=== PATIENT | female | born 1955 | race Caucasian/White ===

== ENCOUNTER 2016-08-23 18:38 | Emergency (ER) | payer BC ==
[~2016-08-23] VITALS: Ht 165.1 cm; Wt 93.8 kg
[~2016-08-23 18:38] MED LIST: METO25 PO; RIVA20 PO; SERT-129 PO; [UNRECOGNIZED DRUG - CODE] PO
[2016-08-23 18:43] VITALS: BP 146/85; PULSE 83; RESP 15; TEMP 97.9; O2SAT 97
--- NOTE | 2016-08-23 19:10 | PD ---
HPI Chief Complaint: Pain: Acute or Chronic Time Seen by Provider: 19:07 Travel History International Travel<30 days: No Contact w/Intl Traveler<30days: No Traveled to known affect area: No History of Present Illness HPI This 61-year-old female had a fairly sudden onset of pain behind her right knee shortly before arrival. She has a history of deep vein thrombosis in her left leg. She has factor V Leiden. She is on Xarelto now. She has some changes due to chronic venous insufficiency in the left leg area of the right leg has not been affected. She did have a history of pulmonary emboli area. The patient was quite severe initially. It was worse when she tried to stand on it PFSH Past Medical History Arthritis: No Asthma: No Atrial Fibrillation: Yes Autoimmune Disease: No Anxiety: Yes (Occasionally) Depression: Yes (Mild depression) Cancer: Yes (skin cancer (Basal cell)) Cardiovascular Problems: Yes (HX OF DVTS AND PE) High Cholesterol: Yes Chemotherapy: No Chest Pain: No Congestive Heart Failure: No COPD: No Cerebrovascular Accident: No Diabetes: No Diminished Hearing: No Endocrine: No Gastrointestinal Disorders: Yes GERD: No Genitourinary: No Hiatal Hernia: No Immune Disorder: No Musculoskeletal: No Neurologic: No Reproductive: No Respiratory: Yes Migraines: Yes Radiation Therapy: No Renal Failure: No Seizures: No Sickle Cell Disease: No Sleep Apnea: No Thyroid Disease: No Ulcer: No Tubal Ligation: Yes Past Surgical History Abdominal Surgery: No AICD: No Arteriovenous Shunt: No Cardiac Surgery: No Ear Surgery: No Endocrine Surgery: No Eye Surgery: No Genitourinary Surgery: No Gynecologic Surgery: No Insulin Pump: No Joint Replacement: No Oral Surgery: No Pacemaker: No Thoracic Surgery: No Tonsillectomy: Yes Other Surgery: Yes (lesion to face removed due to skin cancer) Social History Alcohol Use: No Tobacco Use: No Substance Use: No Allergies-Medications (Allergen,Severity, Reaction): Coded Allergies: Penicillin (Verified Allergy, Intermediate, Hives, 08/23/16) Reported Meds & Prescriptions Reported Meds & Active Scripts Active Reported Sertraline (Sertraline HCl) 50 Mg Tab 50 Mg PO DAILY Metoprolol Tartrate 50 Mg Tab 50 Mg PO BID Xarelto (Rivaroxaban) 10 Mg Tab 10 Mg PO DAILY Review of Systems General / Constitutional: No: Fever, Chills Eyes: No: Diploplia, Blurred Vision HENT: No: Headaches, Vertigo Cardiovascular: No: Chest Pain or Discomfort, Palpitations Respiratory: No: Cough, Shortness of Breath Gastrointestinal: No: Nausea, Vomiting Genitourinary: No: Urgency Musculoskeletal: Positive: Myalgias, Arthralgias, Pain Skin: No Rash Neurologic: No: Weakness Physical Exam Narrative GENERAL: Well-developed female SKIN: Focused skin assessment warm/dry. HEAD: Atraumatic. Normocephalic. EYES: Pupils equal and round. No scleral icterus. No injection or drainage. ENT: No nasal bleeding or discharge. Mucous membranes pink and moist. NECK: Trachea midline. No JVD. CARDIOVASCULAR: Regular rate and rhythm. No murmur appreciated. RESPIRATORY: No accessory muscle use. Clear to auscultation. Breath sounds equal bilaterally. GASTROINTESTINAL: Abdomen soft, non-tender, nondistended. Hepatic and splenic margins not palpable. MUSCULOSKELETAL: Left leg is slightly larger than the right. There are some varicose veins left leg. The right leg the tenderness seems greatest on the medial aspect of the knee. There is no discernible swelling. The Thigh are nontender to palpation. There is no instability of the knee. Distal pulses are intact NEUROLOGICAL: Awake and alert. No obvious cranial nerve deficits. Motor grossly within normal limits. Normal speech. PSYCHIATRIC: Appropriate mood and affect; insight and judgment normal. Data Data Last Documented VS Vital Signs Date Time Temp Pulse Resp B/P Pulse Ox O2 Delivery O2 Flow Rate FiO2 08/23/16 21:15 73 18 97 08/23/16 20:51 131/64 Room Air 08/23/16 18:43 97.9 Orders Us Leg Venous Doppler (08/23/16 19:07) [facility] Medical Decision Making Medical Screen Exam Complete: Yes Emergency Medical Condition: Yes Medical Record Reviewed: Yes Differential Diagnosis Differential includes DVT, right knee pain secondary to arthritis Narrative Course Ultrasound is negative for DVT. This appears to be musculoskeletal pain in the knee. There is no history of trauma so I doubt there is a fracture. Suspect Internal derangement of the knee Diagnosis Primary Impression: Right knee pain Qualified Code: M25.561 - Acute pain of right knee Disposition: DISCHARGE HOME Condition: Stable Piotr Salgado MD Aug 23, 2016 19:10
[2016-08-23] MEDS ORDERED: XARE10TA PO (19:22)
[2016-08-23] MEDS ORDERED: METO50TA PO (19:22)
[2016-08-23] MEDS ORDERED: SERT-132 PO (19:22)
[2016-08-23 19:27] VITALS: BP 146/74; PULSE 82; RESP 18; O2SAT 97
[2016-08-23 20:51] VITALS: BP 131/64; PULSE 73; RESP 18; O2SAT 97
--- NOTE | 2016-08-23 20:56 | RADRPT ---
EXAM DATE/TIME: 08/23/2016 20:20 [facility] COMPARISON: No previous studies available for comparison. INDICATIONS : Right leg pain. MEDICAL HISTORY : Hypercholesterolemia. Deep vein thrombosis. Pleural effusion. Atrial fibrillation. Skin cancer. Dyspnea. SURGICAL HISTORY : Tonsillectomy. Tubal ligation. Skin cancer removed on face. Bilateral knee surgery. ENCOUNTER: Initial ACUITY: 1 day PAIN SCORE: 7/10 LOCATION: Right leg. TECHNIQUE: Venous ultrasound of the leg was performed from the inguinal ligament to the proximal calf. Real-blossom e, color Doppler and spectral tracing, compression and augmentation techniques were used. FINDINGS: There is normal compressibility of the deep venous system from the inguinal region to the proximal ca lf. No echogenic clot is seen in the lumen of the common femoral, femoral, popliteal, and posterior tibial veins. There is a normal response of the venous system to proximal and distal augmentation an d respiration. CONCLUSION: Normal examination. Rodriguez Montague Jr., MD on August 23, 2016 at 20:53 Board Certified Radiologist. This report was verified electronically.
== END 2016-08-23 21:16 | disposition home or self-care (01) ==
LOC: PHED 18:38
DX: M25.561 Pain in right knee (principal); I87.2 Venous insufficiency (chronic) (peripheral); Z79.01 Long term (current) use of anticoagulants; Z86.718 Personal history of other venous thrombosis and embolism; Z86.711 Personal history of pulmonary embolism; Z86.2 Personal history of diseases of the blood and blood-forming organs and certain disorders involving the immune mechanism; Z86.79 Personal history of other diseases of the circulatory system; Z86.59 Personal history of other mental and behavioral disorders; E78.00 Pure hypercholesterolemia, unspecified; Z87.19 Personal history of other diseases of the digestive system; Z86.69 Personal history of other diseases of the nervous system and sense organs
CPT/HCPCS: 93971